=== PATIENT | female | born 1995 | race Caucasian/White ===

== ENCOUNTER 2019-10-25 02:38 | Emergency (ER) | payer MEDICAID, SELFPAY ==
[2019-10-25 02:40] VITALS: BP 147/87; PULSE 83; RESP 18; TEMP 36.7; O2SAT 96; BMI 22.9
[2019-10-25 02:56] LABS: Bedside Glucose > 500 mg/dL (70-110)
--- NOTE | 2019-10-25 03:10 | EKG12_ITS ---
Test Reason : HYPOGLYCEMIA Blood Pressure : / mmHG Vent. Rate : 082 BPM Atrial Rate : 082 BPM P-R Int : 138 ms QRS Dur : 092 ms QT Int : 370 ms P-R-T Axes : 024 021 008 degrees QTc Int : 432 ms Normal sinus rhythm Normal ECG Confirmed by KRAIG VANG, SJ ([id number]), social media editor AMANDA SHARP ([id number]) on 10/29/2019 10:57:29 AM Referred By: Confirmed By:SJ CORNELL MD
[2019-10-25 03:15] LABS: Absolute Lymphocyte Count 1.54 X10^3/uL (0.83-4.51); Absolute Neutrophil Count 2.2 X10^3/uL (2.0-7.7); Basophil# 0.03 X10^3/uL; Basophil% 0.7 % (0-1); Eosinophil# 0.11 X10^3/uL; Eosinophils% 2.5 % (0-5); Hemoglobin 8.7 g/dL (12.0-15.0); Lymphocyte # 1.54 X10^3/ul (4.0); Lymphocyte % 34.6 % (19-41); Mean Corp Hgb Conc 27.2 g/dL (32-36); Mean Corpuscular Hgb 19.1 pg (27.0-32.0); Mean Corpuscular Volume 70.2 fL (81-99); Mean Platelet Vol. 10.2 fl (6.2-12.0); Monocyte# 0.52 X10^3/uL; Monocyte% 11.7 % (0-10); NRBC Flagged by Analyzer 0 % (0-5); Neutrophil # 2.24 X10^3/uL (2.7-7.7); Neutrophil % 50.3 % (47-70); Platelet Count 281 K/mm3 (150-450); RBC Distribution Width CV 18.7 % (11.6-14.6); RBC Distribution Width SD 45.1 fl (35.1-43.9); Red Blood Count 4.56 M/mm3 (4.2-5.4); White Blood Count 4.5 K/mm3 (4.4-11.0)
[2019-10-25] MEDS: 0.9% Normal Saline 1,000 ML 1000 ML IV (03:32)
[2019-10-25 03:38] VITALS: PULSE 83; RESP 16
[2019-10-25 03:38] LABS: Bacteria 0 SEEN /hpf (None Seen); Mucous, Urine 0 SEEN /hpf (<or=2+); Red Blood Cells-Urine 0 SEEN /hpf (0-5); Squamous Epithelial Cells - UA 0 SEEN /hpf (5-10); White Blood Cells 0 SEEN /hpf (0-5)
[2019-10-25 03:39] LABS: Color, Urine Straw (Yellow); Glucose, Dipstick 1000 mg/dl (Normal); Ketone-Dipstick 50 mg/dl (Negative); Leukocyte Esterase-Dipstick 25 /ul (Negative); Nitrite-Dipstick Negative (Negative); Occult Blood-Urine Negative /ul (Negative); Protein-Dipstick Negative (Negative); Specific Gravity, Urine 1.005 (1.002-1.030); Urine Bilirubin Dipstick Negative (Negative); Urine Clarity Clear (Clear); Urine Urobilinogen Normal (Normal)
[2019-10-25 03:40] LABS: ALB/GLOB Ratio 0.8 RATIO (0.9-2.4); AST(SGOT) 39 U/L (15-37); Alanine Aminotransfer ALT/SGPT 58 U/L (13-56); Albumin, Serum 3.3 g/dL (3.2-5.0); Alkaline Phosphatase 104 U/L (45-117); Anion Gap 14 (5-15); BUN 15 mg/dL (7-18); Calcium,Total 8.9 mg/dL (8.5-10.1); Chloride 90 mmol/L (98-107); Creatinine, Serum 0.94 mg/dL (0.55-1.02); EST Glomerular Filtration Rate 79 mL/min (>60); Est Glom Filt Rate - Afr Amer 96 mL/min (>60); Estimated Creatinine Clearance 87.88 ml/min; Globulin 3.9 g/dL (2.2-4.2); Glucose 849 mg/dL (74-106); Potassium 4.1 mmol/L (3.5-5.1); Protein, Total 7.2 g/dL (6.4-8.2); Sodium Level 130 mmol/L (136-145)
[2019-10-25 03:41] LABS: Internal QC Validated? YES +Cl - CLEAR BKGD; Pregnancy, Urine Negative Negative
--- NOTE | 2019-10-25 04:00 | CPS ---
BLOOD GAS RESULTS GIVEN TO .
[2019-10-25] MEDS: 0.9% Normal Saline 1,000 ML 999 ML IV (04:01)
[2019-10-25 04:09] LABS: Amphetamine Urine VISTA NEGATIVE (<1000 ng/mL); Barbiturate Urine VISTA NEGATIVE (< 200 ng/mL); Benzodiazepine Urine VISTA NEGATIVE (< 200 ng/mL); Cocaine Urine VISTA NEGATIVE (< 300 ng/mL); Ecstacy Urine VISTA NEGATIVE (< 500 ng/mL); Methadone Urine VISTA NEGATIVE (< 300 ng/mL); PCP Urine VISTA NEGATIVE (< 25 ng/mL); THC Urine VISTA NEGATIVE (< 50 ng/mL); Vista UDS pH Range 6
[2019-10-25 04:15] LABS: Allen Test POS; Blood Gas Specimen Type ART; O2 Delivery Device Room Air; SITE L RADIAL
[2019-10-25 04:16] LABS: Base Excess -1 mmol/L (-2 to +2); Bicarbonate 23.4 mmol/L (22-26); PO2 86 mmHG (75-100); SO2 97 % (95-99); Time Given 405; Total Carbon Dioxide 25 mmol/L; pCO2 37.6 mmHg (35-45)
--- NOTE | 2019-10-25 04:24 | ED.DCSUM_ITS ---
History of Present Illness Chief Complaint: Hyperglycemia Informant: Patient, Hot Walker Narrative: She presents the emergency department via EMS stating that she is run out of her insulin. She tells me that she is from [place] and her and her significant other caught a ride from [place] to [place] by her sister. Upon arriving in [place] she realized she did not have her insulin with her. She states that she last remembers taking her insulin this afternoon around 3:00. She takes Levemir 70 units twice daily and Humalog 24 units with meals. She states she does not have DKA very often. Patient is having a extremely hard time staying awake and talking to me. She denies any drug or alcohol use. She states it is just a long car ride. When I asked her what made her call the ambulance she states that her future in-laws do not drive, her sister's car broke down as soon as they got to [place], and her significant other is walking here to spend some time with her. No fevers. No vomiting no diarrhea. No known recent infections. Past Medical History - Allergies and Home Meds Allergies/Adverse Reactions: Allergies Penicillins Allergy (Verified 10/25/19 02:43) PT UNSURE OF REACTION Primary Care Physician: NOT,DEFINED [Primary Care Provider] - Smoking Status: Current every day smoker Review of Systems General: Reports: Malaise. Denies: Chills, Fever, Sweats Eyes: Denies: Visual changes - bilaterally, Diplopia ENT: Denies: Rhinorrhea, Sore throat Cardiovascular: Denies: Chest pain, Palpitations Respiratory: Denies: Dyspnea, Cough, Dyspnea on exertion Gastrointestinal: Reports: Nausea. Denies: Abdominal pain, Vomiting, Diarrhea, Melena, Hematochezia Genitourinary: Denies: Dysuria, Hematuria, Frequency Musculoskeletal: Denies: Back pain, Extremity Pain Skin: Denies: Rash, Wounds Neurological: Denies: Headache, Weakness, Numbness Physical Exam Vital Signs/Narrative: Vital Signs Temp Pulse Resp BP Pulse Ox 10/25/19 03:38 83 16 10/25/19 02:40 98.0 F 83 18 147/87 H 96 Inital Vital Signs reviewed: Yes General: Well nourished, Well developed, No Acute Distress Head: Normocephalic, Atraumatic Eyes: Perrl, EOMI ENT: Moist mucous membranes, No rhinorrhea Neck: Supple, Nontender Cardiovascular: Regular rate, Regular rhythm, No murmurs Respiratory: No distress, CTA bilaterally, Chest nontender Abdomen: Soft, Nontender, Nondistended, Normal bowel sounds Back: Nontender, Normal Inspection Extremities: Nontender, No edema Skin: Normal color, No rash Neurological: Alert, Oriented x3, Cranial nerves II-XII grossly intact, Normal Strength, Normal Sensation, - - Patient appears fatigued and falls asleep easily but will wake with voice Psychological: Normal affect, Normal Mood Diagnostic/Tx/Re-eval Laboratory Last Values WBC 4.5 K/mm3 (4.4-11.0) 10/25/19 03:06 RBC 4.56 M/mm3 (4.2-5.4) 10/25/19 03:06 Hgb 8.7 g/dL (12.0-15.0) L 10/25/19 03:06 Hct 32.0 % (37-47) L 10/25/19 03:06 MCV 70.2 fL (81-99) L 10/25/19 03:06 MCH 19.1 pg (27.0-32.0) L 10/25/19 03:06 MCHC 27.2 g/dL (32-36) L 10/25/19 03:06 RDW Std Deviation 45.1 fl (35.1-43.9) H 10/25/19 03:06 RDW Coeff of Suzy 18.7 % (11.6-14.6) H 10/25/19 03:06 Plt Count 281 K/mm3 (150-450) 10/25/19 03:06 MPV 10.2 fl (6.2-12.0) 10/25/19 03:06 Immature Gran % (Auto) 0.200 % (0.0-0.9) 10/25/19 03:06 Neut % (Auto) 50.3 % (47-70) 10/25/19 03:06 Lymph % (Auto) 34.6 % (19-41) 10/25/19 03:06 [place] % (Auto) 11.7 % (0-10) H 10/25/19 03:06 Eos % (Auto) 2.5 % (0-5) 10/25/19 03:06 Baso % (Auto) 0.7 % (0-1) 10/25/19 03:06 Absolute Neuts (auto) 2.2 X10^3/uL (2.0-7.7) 10/25/19 03:06 Absolute Lymphs (auto) 1.54 X10^3/uL (0.83-4.51) 10/25/19 03:06 Nucleated RBC % 0 % (0-5) 10/25/19 03:06 Specimen Type ART 10/25/19 04:00 Sample Site L RADIAL 10/25/19 04:00 pH 7.40 (7.35-7.45) 10/25/19 04:00 Bicarbonate Actual 23.4 mmol/L (22-26) 10/25/19 04:00 POC Total CO2 25 mmol/L 10/25/19 04:00 Base Excess -1 mmol/L (-2 to +2) 10/25/19 04:00 O2 Saturation 97 % (95-99) 10/25/19 04:00 ABG pCO2 37.6 mmHg (35-45) 10/25/19 04:00 ABG pO2 86 mmHG (75-100) 10/25/19 04:00 Sumeet Test POS 10/25/19 04:00 O2 Delivery Device Room Air 10/25/19 04:00 Blood Gas Notified Whom ED 10/25/19 04:00 Blood Gas Notified Time 405 10/25/19 04:00 Sodium 130 mmol/L (136-145) L 10/25/19 03:06 Potassium 4.1 mmol/L (3.5-5.1) 10/25/19 03:06 Chloride 90 mmol/L (98-107) L 10/25/19 03:06 Carbon Dioxide 26.0 mmol/L (21.0-32.0) 10/25/19 03:06 Anion Gap 14 (5-15) 10/25/19 03:06 BUN 15 mg/dL (7-18) 10/25/19 03:06 Creatinine 0.94 mg/dL (0.55-1.02) 10/25/19 03:06 Estim Creat Clear Calc 87.88 ml/min 10/25/19 03:06 Est GFR (MDRD) Af Amer 96 mL/min (>60) 10/25/19 03:06 Est GFR (MDRD) Non-Af 79 mL/min (>60) 10/25/19 03:06 BUN/Creatinine Ratio 16.0 RATIO (10-20) 10/25/19 03:06 Glucose 634 mg/dL (74-106) H* 10/25/19 05:30 Calcium 8.9 mg/dL (8.5-10.1) 10/25/19 03:06 Total Bilirubin 1.30 mg/dL (0.20-1.00) H 10/25/19 03:06 AST 39 U/L (15-37) H 10/25/19 03:06 ALT 58 U/L (13-56) H 10/25/19 03:06 Alkaline Phosphatase 104 U/L (45-117) 10/25/19 03:06 Total Protein 7.2 g/dL (6.4-8.2) 10/25/19 03:06 Albumin 3.3 g/dL (3.2-5.0) 10/25/19 03:06 Globulin 3.9 g/dL (2.2-4.2) 10/25/19 03:06 Albumin/Globulin Ratio 0.8 RATIO (0.9-2.4) L 10/25/19 03:06 Urine Color Straw (Yellow) 10/25/19 02:50 Urine Clarity Clear (Clear) 10/25/19 02:50 Urine pH 6.0 (5.0 - 8.0) 10/25/19 02:50 Ur Specific [place] 1.005 (1.002-1.030) 10/25/19 02:50 Urine Protein Negative mg/dl (Negative) 10/25/19 02:50 Urine Glucose (UA) 1000 mg/dl (Normal) H 10/25/19 02:50 Urine Ketones 50 mg/dl (Negative) H 10/25/19 02:50 Urine Occult Blood Negative /ul (Negative) 10/25/19 02:50 Urine Nitrite Negative (Negative) 10/25/19 02:50 Urine Bilirubin Negative mg/dL (Negative) 10/25/19 02:50 Urine Urobilinogen Normal mg/dl (Normal) 10/25/19 02:50 Ur Leukocyte Esterase 25 /ul (Negative) H 10/25/19 02:50 Urine RBC 0 SEEN /hpf (0-5) 10/25/19 02:50 Urine WBC 0 SEEN /hpf (0-5) 10/25/19 02:50 Ur Squamous Epith Cells 0 SEEN /hpf (5-10) 10/25/19 02:50 Urine Bacteria 0 SEEN /hpf (None Seen) 10/25/19 02:50 Urine Mucus 0 SEEN /hpf (<or=2+) 10/25/19 02:50 Urine Test Negative Negative 10/25/19 02:50 Urine Opiates Screen NEGATIVE (< 300 ng/mL) 10/25/19 02:50 Urine Methadone Screen NEGATIVE (< 300 ng/mL) 10/25/19 02:50 Ur Barbiturates Screen NEGATIVE (< 200 ng/mL) 10/25/19 02:50 Ur Phencyclidine Scrn NEGATIVE (< 25 ng/mL) 10/25/19 02:50 Ur Amphetamines Screen NEGATIVE (<1000 ng/mL) 10/25/19 02:50 U Methamphetamin-MDMA NEGATIVE (< 500 ng/mL) 10/25/19 02:50 U Benzodiazepines Scrn NEGATIVE (< 200 ng/mL) 10/25/19 02:50 Urine Cocaine Screen NEGATIVE (< 300 ng/mL) 10/25/19 02:50 U Cannabinoids Screen NEGATIVE (< 50 ng/mL) 10/25/19 02:50 Ur Drug Screen Comment 10/25/19 02:50 Ethyl Alcohol 5.0 mg/dL 10/25/19 03:06 Acetone Level MODERATE (NEG) H 10/25/19 03:06 POC Glucose > 500 mg/dL (70-110) H* 10/25/19 02:50 - EKG Initial EKG Interpretation: Sinus Rhythm - EKG demonstrates a normal sinus rhythm at a rate of 82 without concerning features of ACS or hyperkalemia - Medical Decision Making Patient's ABG shows a pH of 7.40 PCO2 37.6. Bicarb 23.4 PO2 of 86. Patient does not appear to NOT have an anion gap acidosis. Her bicarb is normal. She does has significant hyperglycemia (>800). Patient received 2 L of IV fluids as well as 70 units of insulin detemir (pharmacy substitution). Repeat blood sugar is down into 634. She received 15 units of IV insulin and continued IV fluids. ED Disposition - Plan for ED Patient: Disposition: Home or Assisted Living Diagnosis: Severe hyperglycemia due to diabetes mellitus, Medical non-compliance Instructions: ED Diabetic Hyperglycemia Prescriptions: Insulin Lispro [Humalog Antonio Kwikpen] 24 unit SQ TID #1 Prescription Printed Insulin Detemir [Levemir] 70 unit SQ BID #1 vial Prescription Printed Referrals: NOT,DEFINED [Primary Care Provider] - Additional Instructions: You need to follow-up with your doctor soon as possible. Do not leave home without your insulin. Insulin is vital to your survival is a diabetic
[2019-10-25 04:59] VITALS: BP 133/80; PULSE 88; RESP 16
[2019-10-25 05:07] VITALS: BP 136/64; PULSE 87; RESP 16
[2019-10-25 06:02] LABS: Glucose 634 mg/dL (74-106)
[2019-10-25 06:34] VITALS: RESP 16
[2019-10-25 08:20] VITALS: BP 128/91; PULSE 81; RESP 14
[2019-10-25 10:21] LABS: Bedside Glucose 242 mg/dL (70-110)
== END 2019-10-25 08:21 | disposition home or self-care (01) ==
PROVIDERS: Emergency Provider Emergency Medicine
DX: E11.65 Type 2 diabetes mellitus with hyperglycemia (principal); Z79.4 Long term (current) use of insulin; Z91.19 Patient's noncompliance with other medical treatment and regimen; F17.200 Nicotine dependence, unspecified, uncomplicated
CPT/HCPCS: 36600; 80053; 80307; 80320; 81001; 81025; 82009; 82803; 82947; 82962; 85025; 93005; 96361; 96374; 99285; J7030; A4216; G0480